=== PATIENT | female | born 1945 | race American Indian/Alaskan Native ===

== ENCOUNTER 2016-11-29 20:17 | Emergency (ER) | payer MEDICARE ==
[2016-11-29 20:35] VITALS: BP 151/66
[2016-11-29 21:00] LABS: Bilirubin,Urine NEG (Negative); Blood,Urine SM (Negative); Ketones,Urine NEG (Negative); Leukocyte Esterase,Urine NEG (Negative); Mucus,Urine FEW /HPF; Nitrite,Urine NEG (Negative); Protein,Urine <15 mg/dL mg/dL (Negative); Urobilinogen,Urine < 2.0 mg/dL (<2.0)
--- NOTE | 2016-11-29 21:28 | Emergency Department Report ---
ED ENT HPI - General Chief complaint: Sore Throat Stated complaint: RASH/THROAT PAIN/POSS UTI Time Seen by Provider: 11/29/16 20:42 Source: patient Mode of arrival: Ambulatory Limitations: No Limitations - History of Present Illness Initial comments: 71-year-old female presents with complaint of itchy rash to skin for 3 days. States she has been scratching her skin vigorously. On exam is awake alert and oriented 3 not in acute distress. Also states that she has had some mild dysuria for 2 days denies any hematuria, slight increased frequency as per patient. Also complaining of sensation of sore throat Onset/Timin -: days(s) Severity: moderate Consistency: constant Improves with: none Worsens with: none - Related Data Previous Rx's Medication Instructions Recorded Last Taken Type Cephalexin [Keflex] 500 mg PO Q12HR #14 cap 11/29/16 Unknown Rx Hydrocortisone 1% [Hydrocortisone 1 applicatio TP TID PRN #1 tube 11/29/16 Unknown Rx 1% CREAM] Ibuprofen [Motrin] 400 mg PO Q8H PRN #20 tablet 11/29/16 Unknown Rx Permethrin 5% [Acticin 5% CREAM] 1 applicatio TP ONCE #1 tube 11/29/16 Unknown Rx Allergies Allergy/AdvReac Type Severity Reaction Status Date / Time Sulfa (Sulfonamide Allergy Rash Verified 11/29/16 20:32 Antibiotics) ED Dental HPI - General Chief complaint: Sore Throat Stated complaint: RASH/THROAT PAIN/POSS UTI Time Seen by Provider: 11/29/16 20:42 Source: patient Mode of arrival: Ambulatory Limitations: No Limitations - Related Data Previous Rx's Medication Instructions Recorded Last Taken Type Cephalexin [Keflex] 500 mg PO Q12HR #14 cap 11/29/16 Unknown Rx Hydrocortisone 1% [Hydrocortisone 1 applicatio TP TID PRN #1 tube 11/29/16 Unknown Rx 1% CREAM] Ibuprofen [Motrin] 400 mg PO Q8H PRN #20 tablet 11/29/16 Unknown Rx Permethrin 5% [Acticin 5% CREAM] 1 applicatio TP ONCE #1 tube 11/29/16 Unknown Rx Allergies Allergy/AdvReac Type Severity Reaction Status Date / Time Sulfa (Sulfonamide Allergy Rash Verified 11/29/16 20:32 Antibiotics) ED Review of Systems ROS: Stated complaint: RASH/THROAT PAIN/POSS UTI Other details as noted in HPI Constitutional: denies: chills, fever Eyes: denies: eye pain, eye discharge, vision change ENT: denies: ear pain, throat pain Respiratory: denies: cough, shortness of breath, wheezing Cardiovascular: denies: chest pain, palpitations Endocrine: no symptoms reported Gastrointestinal: denies: abdominal pain, nausea, diarrhea Genitourinary: denies: urgency, dysuria, discharge Musculoskeletal: denies: back pain, joint swelling, arthralgia Skin: as per HPI, lesions. denies: rash Neurological: denies: headache, weakness, paresthesias Psychiatric: denies: anxiety, depression Hematological/Lymphatic: denies: easy bleeding, easy bruising ED Past Medical Hx - Past Medical History Previous Medical History?: Yes Hx Hypertension: Yes Additional medical history: 'thyroid problems' - Surgical History Past Surgical History?: No - Social History Smoking Status: Current Some Day Smoker Substance Use Type: None - Medications Home Medications: Home Medications Medication Instructions Recorded Confirmed Last Taken Type Cephalexin [Keflex] 500 mg PO Q12HR #14 cap 11/29/16 Unknown Rx Hydrocortisone 1% [Hydrocortisone 1 applicatio TP TID PRN #1 tube 11/29/16 Unknown Rx 1% CREAM] Ibuprofen [Motrin] 400 mg PO Q8H PRN #20 tablet 11/29/16 Unknown Rx Permethrin 5% [Acticin 5% CREAM] 1 applicatio TP ONCE #1 tube 11/29/16 Unknown Rx ED Physical Exam - General Limitations: No Limitations General appearance: alert, in no apparent distress - Head Head exam: Present: atraumatic, normocephalic - Eye Eye exam: Present: normal appearance, PERRL, EOMI - ENT ENT exam: Present: normal exam, mucous membranes moist - Neck Neck exam: Present: normal inspection, full ROM - Respiratory Respiratory exam: Present: normal lung sounds bilaterally. Absent: respiratory distress - Cardiovascular Cardiovascular Exam: Present: regular rate, normal rhythm. Absent: systolic murmur, diastolic murmur, rubs, gallop - GI/Abdominal GI/Abdominal exam: Present: soft (abdomen soft nontender nondistended), normal bowel sounds - Extremities Exam Extremities exam: Present: normal inspection - Back Exam Back exam: Present: normal inspection - Neurological Exam Neurological exam: Present: alert, oriented X3, CN II-XII intact, normal gait - Psychiatric Psychiatric exam: Present: normal affect, normal mood - Skin Skin exam: Present: warm, dry, intact, normal color, other (linear excoriations on arms and legs and small erythematous lesions consistent with scabies in a linear fashion). Absent: rash ED Course Vital Signs 11/29/16 20:32 Temperature 98.0 F Pulse Rate 76 Respiratory 18 Rate Blood Pressure 151/66 O2 Sat by Pulse 99 Oximetry ED Medical Decision Making - Lab Data Result diagrams: 11/29/16 21:40 11/29/16 21:40 - Medical Decision Making A/P: Possible scabies, dysuria, pharyngitis 1-patient has linear excoriations consistent with scabies will treat empirically with permethrin 2-as patient has both urinary symptoms and sore throat will empirically treat with course of Keflex 3-topical hydrocortisone when necessary 4- follow up with primary care doctor. Labs unremarkable Critical care attestation.: If time is entered above; I have spent that time in minutes in the direct care of this critically ill patient, excluding procedure time. ED Disposition Clinical Impression: Scabies, Sore throat, Dysuria Disposition: DC-01 TO HOME OR SELFCARE Is pt being admited?: No Does the pt Need Aspirin: No Condition: Stable Instructions: Scabies (ED), Dysuria (ED) Prescriptions: Cephalexin [Keflex] 500 mg PO Q12HR #14 cap Hydrocortisone 1% [Hydrocortisone 1% CREAM] 1 applicatio TP TID PRN #1 tube PRN Reason: Itching Ibuprofen [Motrin] 400 mg PO Q8H PRN #20 tablet PRN Reason: Pain Permethrin 5% [Acticin 5% CREAM] 1 applicatio TP ONCE #1 tube Referrals: SARAH ERWIN MD [Staff Physician] - 3-5 Days Time of Disposition: 22:58
[2016-11-29 21:57] LABS: Basophils % (Auto) 0.4 % (0.0-1.8); Eosinophils % (Auto) 5.9 % (0.0-4.3); Hematocrit 34.1 % (30.3-42.9); Hemoglobin 11.7 gm/dl (10.1-14.3); Mean Corpuscular HGB Conc 34 % (30-34); Mean Corpuscular Hemoglobin 32 pg (28-32); Mean Corpuscular Volume 94 fl (79-97); Platelet Count 269 K/mm3 (140-440); Red Blood Count 3.62 M/mm3 (3.65-5.03); Red Cell Distribution Width 12.1 % (13.2-15.2); White Blood Count 6.5 K/mm3 (4.5-11.0)
[2016-11-29 22:08] LABS: Anion Gap 18 mmol/L; BUN/Creatinine Ratio 18.75; Blood Urea Nitrogen 15 mg/dL (7-17); Calcium 9.2 mg/dL (8.4-10.2); Carbon Dioxide 27 mmol/L (22-30); Glucose 120 mg/dL (65-100); Sodium 141 mmol/L (137-145)
== END 2016-11-29 22:45 | disposition home or self-care (01) ==
LOC: ED 20:17
DX: B86 Scabies (principal); J02.9 Acute pharyngitis, unspecified; R30.0 Dysuria; I10 Essential (primary) hypertension; F17.210 Nicotine dependence, cigarettes, uncomplicated; Z88.2 Allergy status to sulfonamides
CPT/HCPCS: 36415; 80048; 81001; 82550; 85025; 87116; 87430; 99283

== ENCOUNTER 2017-04-27 19:15 | Emergency (ER) | payer MEDICARE ==
[2017-04-27 21:34] LABS: Basophils % (Auto) 0.5 % (0.0-1.8); Eosinophils % (Auto) 0.1 % (0.0-4.3); Hematocrit 36.5 % (30.3-42.9); Hemoglobin 12.6 gm/dl (10.1-14.3); Lymphocytes # (Auto) 1.1 K/mm3 (1.2-5.4); Lymphocytes % (Auto) 20.9 % (13.4-35.0); Mean Corpuscular HGB Conc 34 % (30-34); Mean Corpuscular Hemoglobin 31 pg (28-32); Mean Corpuscular Volume 91 fl (79-97); Monocytes # (Auto) 0.6 K/mm3 (0.0-0.8); Monocytes % (Auto) 11.5 % (0.0-7.3); Platelet Count 224 K/mm3 (140-440); Red Cell Distribution Width 12.9 % (13.2-15.2)
[2017-04-27 21:57] LABS: Alanine Aminotransferase 13 units/L (7-56); Albumin 3.9 g/dL (3.9-5); BUN/Creatinine Ratio 15; Blood Urea Nitrogen 12 mg/dL (7-17); Hemolysis Index 6
--- NOTE | 2017-04-27 23:34 | XRay Report ---
FINAL REPORT PROCEDURE: XR CHEST ROUTINE 2V TECHNIQUE: PA and lateral chest radiographs were obtained. CPT 23111 HISTORY: chest congestion COMPARISON: No prior studies are available for comparison. FINDINGS: Heart: Normal. Mediastinum/Vessels: Normal. Lungs/Pleural space: Normal. Bony thorax: No acute osseous abnormality. Other: IMPRESSION: Normal examination.
[2017-04-28 01:20] VITALS: BP 153/56
--- NOTE | 2017-04-28 01:53 | Emergency Department Report ---
Minor Respiratory - HPI Chief Complaint: Upper Respiratory Infection Stated Complaint: COLD SX Time Seen by Provider: 04/28/17 01:51 Duration: 2 weeks Severity: mild Minor Respiratory: Yes Rhinorrhea, Yes Able to Tolerate Fluids, Yes Cough, Yes Sick Contacts, No Sore Throat, No Ear Pain, No Hemoptysis, No Chest Pain, No Shortness of Breath, No Fever Other History: This is a 71 y.o. female presents with cough, chills, and fever for 2 weeks. She is taking nyquil and cepacol for symptom releif with minimal improvement. She was feeling better a week ago but traveling home she began to feel weak and feverous from long car ride. Denies chest pain, SOB, bodyaches, nausea and vomiting, and abdominal pain. She is concerned about a rash on right foot that appears to be healing but it is circulation tender to touch. She bumped her right foot against a door a few weeks ago and used home remedy, which improved symptoms but it won't fully heal. Denies numbness and tingling, swelling, and deformity. ED Review of Systems ROS: Stated complaint: COLD SX Other details as noted in HPI Constitutional: see HPI, fever. denies: chills, diaphoresis, malaise, weakness ENT: as per HPI, congestion. denies: ear pain, throat pain, dental pain, hearing loss, epistaxis Respiratory: no symptoms reported, see HPI, cough. denies: orthopnea, shortness of breath, SOB with exertion, SOB at rest, stridor, wheezing Cardiovascular: as per HPI. denies: chest pain, palpitations, dyspnea on exertion, orthopnea, edema, syncope, paroxysmal nocturnal dyspnea Gastrointestinal: as per HPI. denies: abdominal pain, nausea, vomiting, diarrhea, constipation, hematemesis, melena, hematochezia Skin: as per HPI, change in color (bruising to right foot). denies: rash, lesions, change in hair/nails, pruritus Neurological: as per HPI. denies: headache, weakness, numbness, paresthesias, confusion, abnormal gait, vertigo ED Past Medical Hx - Past Medical History Previous Medical History?: Yes Hx Hypertension: Yes Additional medical history: 'thyroid problems' - Surgical History Past Surgical History?: No - Social History Smoking Status: Never Smoker Substance Use Type: None - Medications Home Medications: Home Medications Medication Instructions Recorded Confirmed Last Taken Type Cephalexin [Keflex] 500 mg PO Q12HR #14 cap 11/29/16 Unknown Rx Hydrocortisone 1% [Hydrocortisone 1 applicatio TP TID PRN #1 tube 11/29/16 Unknown Rx 1% CREAM] Ibuprofen [Motrin] 400 mg PO Q8H PRN #20 tablet 11/29/16 Unknown Rx Permethrin 5% [Acticin 5% CREAM] 1 applicatio TP ONCE #1 tube 11/29/16 Unknown Rx Benzonatate 200 mg PO TID #30 capsule 04/28/17 Unknown Rx Clindamycin/Tretinoin 30 gm TP QHS 5 Days #1 gel..gram. 04/28/17 Unknown Rx [Clinda-Tretinoin 1.2%-0.025%] Fluticasone [Flonase] 1 spray NS QDAY #1 bottle 04/28/17 Unknown Rx Pseudoeph/Dm/Guaifen/Acetamin 1 each PO BID 5 Days #10 tablet 04/28/17 Unknown Rx [Duraflu 432-25-918-60 mg Tab] Minor Respiratory Exam - Exam General: Vital signs noted. No distress. Alert and acting appropriately. HEENT: Yes Pharyngeal Erythema, Yes Moist Mucous Membranes, Yes Rhinorrhea ( clear, erythematous, swollen turbinates bilaterally), No Pharyngeal Exudates, No Conjuctival Injection, No Frontal Tenderness, No Maxillary Tenderness Ear: Neither TM Bulge, Neither TM Erythema, Neither EAC Pain, Neither EAC Discharge Neck: Yes Supple, No Adenopathy Lungs: Yes Good Air Exchange, Yes Cough, No Wheezes, No Ronchi, No Stridor, No Labored Respirations, No Retractions, No Use of Accessory Muscles, No Other Abnormal Lung Sounds Heart: Yes Regular, No Murmur Abdomen: Yes Normal Bowel Sounds, No Tenderness, No Peritoneal Signs Skin: No Rash (2 cm erythematous area, tender to palpation, blanchable, healed scar), No Edema Neurologic: Alert and oriented, no deficits. Musculoskeletal: Unremarkable. ED Course Vital Signs 04/27/17 04/28/17 21:02 01:19 Temperature 99 F 99.2 F Pulse Rate 88 90 Respiratory 16 16 Rate Blood Pressure 129/69 Blood Pressure 153/56 [Left] O2 Sat by Pulse 99 96 Oximetry ED Medical Decision Making - Lab Data Result diagrams: 04/27/17 21:09 04/27/17 21:09 - Radiology Data Radiology results: image reviewed FINDINGS: Heart: Normal. Mediastinum/Vessels: Normal. Lungs/Pleural space: Normal. Bony thorax: No acute osseous abnormality. Other: IMPRESSION: Normal examination. - Differential Diagnosis Contact dermatitis, insect bites Critical care attestation.: If time is entered above; I have spent that time in minutes in the direct care of this critically ill patient, excluding procedure time. ED Disposition Clinical Impression: Nasopharyngitis acute, Cellulitis of foot excluding toe Disposition: DC- TO HOME OR SELFCARE Is pt being admited?: No Does the pt Need Aspirin: No Condition: Stable Instructions: Upper Respiratory Infection (ED), Cold Symptoms (ED) Additional Instructions: Wear support stockings to reduce swelling. Elevated right lower extremity while sitting. Prescriptions: Clindamycin/Tretinoin [Clinda-Tretinoin 1.2%-0.025%] 30 gm TP QHS 5 Days #1 gel..gram. Benzonatate 200 mg PO TID #30 capsule Fluticasone [Flonase] 1 spray NS QDAY #1 bottle Pseudoeph/Dm/Guaifen/Acetamin [Duraflu [id number] mg Tab] 1 each PO BID 5 Days #10 tablet Referrals: RICHELLE SCRUGGS MD [Primary Care Provider] - 3-5 Days Time of Disposition: 02:52 Print Language: LITHUANIAN
[2017-04-28] MEDS ORDERED: MOTRIN PO ONE (02:57)
[2017-04-28] MEDS ORDERED: DECADRON IM ONE (02:57)
== END 2017-04-28 03:11 | disposition home or self-care (01) ==
LOC: ED 19:15
DX: J00 Acute nasopharyngitis [common cold] (principal); L03.115 Cellulitis of right lower limb
CPT/HCPCS: 36415; 71046; 80053; 85025; 96372; 99284; J1100